=== PATIENT | male | born 1955 ===

== ENCOUNTER 2019-12-08 08:03 | Day surgery (SDC) | payer OTHER ==
[~2019-12-08] VITALS: Ht 185.4 cm; Wt 85.6 kg
--- NOTE | 2019-12-08 09:36 | NUR ---
Ambulatory in Day SurgeryPatient states colon prep results clear. History, Chart, Medications and Allergies reviewed before start of procedure.Lungs clear T/O to Auscultation. Patient confirms NPO status and agrees with scheduled surgery. Pre-Op teaching done. Pt verbalizes understanding. Patient States Post-Procedure ride home has been arranged.
--- NOTE | 2019-12-08 09:46 | NUR ---
12/08/19 0946 Skip Watkins History, Chart, Medications and Allergies reviewed before start of procedure.MONITOR INTACT WITH CONTINUOUS PULSE OXIMETRY AND INTERMITTENT BP.3-LEAD EKG REVIEWED WITH PHYSICIAN PRIOR TO START OF PROCEDURE.O2 VIA N/C INTACT THROUGHOUT SEDATION/PROCEDURE. PATIENT DETERMINED TO BE ASA APPROPRIATE FOR PROPOFOL SEDATION PRIOR TO START OF PROCEDURE BY DR. IRVIN.
--- NOTE | 2019-12-08 10:16 | NUR ---
REC IEVED PATIENT FROM ROSENDO NGUYEN RN AND REPORT VSS PATIENT AWAKE AND GIVEN COFFEE TO DRINK
--- NOTE | 2019-12-08 10:32 | NUR ---
PATIENT GETTING DRESSED AT THIS TIME. HAS DRANK A CUP OF COFFEE AT BEDSIDE.
--- NOTE | 2019-12-08 10:37 | NUR ---
Discharge instructions reviewed with patient. Patient verbalizes understanding. Copy given to patient to take home. Patient States Post-Procedure ride home has been arranged. Discharged via wheelchair to private car for ride home.
== END 2019-12-08 23:17 | disposition home or self-care (01) ==
LOC: ORSCMMR 08:03 → ORD 09:30 → ORSCMMR 09:30
PROVIDERS: Internal Medicine Gastroenterology
PROC: 0DBM8ZX Excision of Descending Colon, Via Natural or Artificial Opening Endoscopic, Diagnostic (ICD-10-PCS; principal; 2019-12-08 09:30)
PROC: 0DBN8ZX Excision of Sigmoid Colon, Via Natural or Artificial Opening Endoscopic, Diagnostic (ICD-10-PCS; principal; 2019-12-08 09:30)
DX: Z12.11 Encounter for screening for malignant neoplasm of colon (principal); K63.5 Polyp of colon
CPT/HCPCS: 88305; J2704; J7120